=== PATIENT | male | born 1970 | race Two or more races ===

== ENCOUNTER 2017-12-10 19:38 | Inpatient (IN) | payer BC ==
[2017-12-10 20:37] LABS: % BASOPHILS 1.2 % (0.0-2.0); % EOSINOPHILS 3.4 % (0.0-5.0); % LYMPHOCYTES 17.4 % (20.0-50.0); % MONOCYTES 10.1 % (2.0-10.0); % NEUTROPHILS 67.9 % (40.0-80.0); BASOPHILE ABSOLUTE 0.1 Th/cumm (0-0.2); EOSINOPHILE ABSOLUTE 0.2 Th/cmm (0.1-0.4); HEMATOCRIT 24.9 % (41.0-60); HEMOGLOBIN 8.3 gm/dL (12-16); LYMPHOCYTE ABSOLUTE 1.1 Th/cmm (1.5-3.0); MEAN CELL VOLUME 90.8 fl (80-99); MEAN CORPUSCULAR HEMOGLOBIN 30.1 pg (26.0-30.0); MEAN CORPUSCULAR HGB CONC 33.1 pg (28.0-36.0); MEAN PLATELET VOLUME 7.1 fl; MONOCYTE ABSOLUTE 0.7 Th/cmm (0.3-1.0); NEUTROPHILE ABSOLUTE 4.5 Th/cmm (1.8-8.0); PLATELET COUNT 228 Th/cmm (150-400); RED BLOOD COUNT 2.75 Mil/cmm (4.30-5.70); RED CELL DISTRIBUTION WIDTH 12.9 % (11.5-20.0); WHITE BLOOD COUNT 6.6 Th/cmm (4.8-10.8)
--- NOTE | 2017-12-10 20:39 | ED Physician Chart ---
ED Chief Complaint/HPI - Patient Information Date Seen:: 12/10/17 Time Seen:: 20:05 Chief Complaint:: syncope History of Present Illness:: 47 yr old male on perioteneal dialysis for one yr with syncope yest found down on floor with hematoma rt forehead and headache Vitals:: Vital Signs - 8 hr 12/10/17 19:40 Temp 97.4 F HR 78 RR 18 BP 175/98 O2 Sat % 98 ED Review of Systems - Review of Systems General/Constitutional: No fever, No chills Skin: No skin lesions Head: No headache Eyes: No loss of vision ENT: No earache Neck: No neck pain Cardio Vascular: No chest pain Pulmonary: No SOB GI: No nausea, No vomiting G/U: No dysuria Musculoskeletal: No bone or joint pain Psychiatric: No depression Hematopoietic: No bruising Allergic/Immuno: No urticaria Neurological: Syncope, No focal symptoms, Headache, Confusion Family Medical History - Family Member Mother History Unknown: Yes Ethnicity: ED Septic Shock - . Is Septic Shock (SBP<90, OR Lactate>4 mmol\L) present?: No - <6hrs of presentation: Vital Signs: Vital Signs - 8 hr 12/10/17 19:40 Temp 97.4 F HR 78 RR 18 BP 175/98 O2 Sat % 98 ED Reassessment (Disposition) - Reassessment Reassessment Condition:: Unchanged - Diagnosis Diagnosis:: syncope - Patient Disposition Discharge/Transfer:: Acute Care w/in this hosp Admitted to:: Med/Surg Condition at Disposition:: Stable
[2017-12-10] MEDS ORDERED: Morphine Sulfate 2 mg/mL 1mL Syr IV STA (20:48)
[2017-12-10 20:51] LABS: ALB/GLOB RATIO 1.1 (1.0-1.8); ALBUMIN 3.4 gm/dL (4.2-5.5); ANION GAP 16.7 (7.0-16.0); BILIRUBIN,TOTAL 0.4 mg/dL (0.3-1.0); CALCIUM SERUM 7.2 mg/dL (8.6-10.3); CARBON DIOXIDE 23.1 mEq/L (21.0-31.0); GFR AFRICAN-AMERICAN 5.3 ml/min (>90); GFR NON AFRICAN-AMERICAN 4.4 ml/min; POTASSIUM SERUM 3.8 mEq/L (3.5-5.1); TOTAL PROTEIN,SERUM 6.6 gm/dL (6.0-8.3)
[2017-12-10] MEDS ORDERED: Morphine Sulfate 2 mg/mL 1mL Syr ONE (20:54)
[2017-12-10 20:55] LABS: CREATININE - SERUM 13.1 mg/dL (0.7-1.3)
[2017-12-11 00:48] VITALS: BP 160/99
[2017-12-11 06:55] LABS: % BASOPHILS 1.2 % (0.0-2.0); % EOSINOPHILS 2.8 % (0.0-5.0); % LYMPHOCYTES 15.1 % (20.0-50.0); % MONOCYTES 8.9 % (2.0-10.0); MEAN CELL VOLUME 90.2 fl (80-99); MEAN CORPUSCULAR HEMOGLOBIN 30.8 pg (26.0-30.0); MEAN CORPUSCULAR HGB CONC 34.2 pg (28.0-36.0); MEAN PLATELET VOLUME 7.2 fl; PLATELET COUNT 223 Th/cmm (150-400); RED CELL DISTRIBUTION WIDTH 12.4 % (11.5-20.0)
[2017-12-11 07:08] LABS: ANION GAP 16.5 (7.0-16.0); BILIRUBIN,TOTAL 0.4 mg/dL (0.3-1.0); CARBON DIOXIDE 22.5 mEq/L (21.0-31.0); GFR AFRICAN-AMERICAN 5.1 ml/min (>90); GFR NON AFRICAN-AMERICAN 4.2 ml/min; TOTAL PROTEIN,SERUM 5.9 gm/dL (6.0-8.3)
[2017-12-11 07:22] LABS: WHITE BLOOD COUNT 7.3 Th/cmm (4.8-10.8)
[2017-12-11 07:24] LABS: BASOPHILE ABSOLUTE 0.1 Th/cumm (0-0.2); EOSINOPHILE ABSOLUTE 0.2 Th/cmm (0.1-0.4); LYMPHOCYTE ABSOLUTE 1.1 Th/cmm (1.5-3.0); MONOCYTE ABSOLUTE 0.6 Th/cmm (0.3-1.0); NEUTROPHILE ABSOLUTE 5.3 Th/cmm (1.8-8.0)
[2017-12-11 07:36] LABS: HEMATOCRIT 23.4 % (41.0-60)
[2017-12-11 08:10] LABS: CREATININE - SERUM 13.4 mg/dL (0.7-1.3)
[2017-12-11] MEDS: Aspirin 81mg Chewable Tab PO SCH (09:18)
[2017-12-11] MEDS: Levothyroxine 0.05 Mg Tab PO SCH (09:18)
--- NOTE | 2017-12-11 09:18 | Diagnostic Imaging Report ---
CT scan of the brain without contrast History: Syncope Total DLP equals 816 CTDI equals 42.0 Axial sections were obtained from the base of the skull to the vertex. Marked soft tissue swelling noted over the right frontal region of the skull. Hyperdensity consistent with subcutaneous hematoma. There is a normal ventricular system size. No focal parenchymal lesions are seen. No evidence of any mass effect or shift of midline structures. No extra-axial masses or abnormal fluid collections. Atherosclerotic calcification seen in the region of the vertebral and basilar arteries at the base of the skull. Impression: 1. Marked soft tissue swelling over the right frontal region of the skull 2. No acute intracerebral abnormalities 3. Atherosclerotic vascular changes
[2017-12-11] MEDS: Atorvastatin Calcium 10 MG TAB PO SCH (09:19)
[2017-12-11] MEDS ORDERED: Acetaminophen 500 MG TAB PO PRN (11:51)
--- NOTE | 2017-12-11 13:32 | Consultation ---
DATE OF CONSULTATION: 12/11/2017 ATTENDING PHYSICIAN: Dr. Enrrique Gayle. REASON FOR CONSULTATION: End-stage renal disease. HISTORY OF PRESENT ILLNESS: The patient is a 47-year-old male with end-stage renal disease, on peritoneal dialysis, who was brought into the Emergency Room last night because of syncope and hematoma. He is admitted. I am called in consultation to manage his end-stage renal disease. PAST MEDICAL HISTORY: Significant for diabetes, hypertension, hyperlipidemia, end-stage renal disease on peritoneal dialysis for the past year. FAMILY HISTORY: Noncontributory. SOCIAL HISTORY: The patient denies drinking or smoking. ALLERGIES: No known drug allergies. MEDICATIONS: See medication reconciliation form. REVIEW OF SYSTEMS: As in history of present illness, all other systems reviewed and found to be negative. PHYSICAL EXAMINATION: VITAL SIGNS: His blood pressure is 161/83, temperature is 98.2, pulse is 71, respirations 18. CARDIOVASCULAR: S1, S2 heard. Regular rate and rhythm. LUNGS: Clear to auscultation bilaterally. ABDOMEN: Soft. No hepatosplenomegaly. There is a peritoneal dialysis catheter present. EXTREMITIES: There is no cyanosis, clubbing or edema. NEUROLOGIC: Cranial nerves 2-12 are intact. No focal deficit. LABORATORY DATA: WBC 7.3, hemoglobin 8.0, hematocrit 23.4, platelet count 223. Sodium is 138, potassium 4.0, chloride 103, bicarbonate 22.5, BUN 69, creatinine 13.4, glucose 137. Lactic acid 0.52, bilirubin 0.4, AST 15, ALT 41, alkaline phosphatase 56. Troponin 0.06. Total protein 5.9, albumin 3.0, globulin 2.9. ASSESSMENT AND PLAN: 1. End-stage renal disease, on peritoneal dialysis. We will continue his dialysis per regular schedule. 2. Syncope with head injury, rule out [place] with serial troponins and neuro consult. 3. Diabetes mellitus. Cover with sliding scale insulin. 4. Hypertension. Continue antihypertensive medications. Thank you very much for the privilege of consulting on your patient, Dr. Gayle. JOB# [id number]
--- NOTE | 2017-12-12 03:08 | History & Physical ---
ADMIT DATE: 12/11/2017 CHIEF COMPLAINT: Fall, head injury. HISTORY OF PRESENT ILLNESS: This is a 47-year-old male with ESRD, on daily peritoneal dialysis; also anemia of chronic disease; hypertension; lives at home, was brought into Emergency Room for evaluation of the fall and injury. The patient in the emergency room ____ treatment. The patient is Lao speaking. The patient's Croatian speaking family members who were at the bedside have made interpretation. The patient stated that at night he was going to the bathroom and was dark in the room and tripped and fell, injured his head, does not remember much after that. The patient said he went to work next in the morning, but he had a headache, so family member recommended the patient come to the Emergency Room. Per the Emergency Room, a CT of the head was negative for any ____ hemorrhage. The patient denies any associated chest pain, no shortness of breath, no dizziness, palpitations, no fever, no chills, no nausea, no vomiting, no abdominal pain. No headache, no seizure-like activity during the events. PAST MEDICAL HISTORY: Chronic kidney disease, on peritoneal dialysis; anemia; hypertension; hyperlipidemia; and hypothyroidism. PAST SURGICAL HISTORY: No reports of any past history. FAMILY AND SOCIAL HISTORY: Lives at home. He works as a mechanical shovel operator. No reported alcohol, tobacco, or street drug use. CURRENT MEDICATIONS: Tylenol, aspirin, Lipitor, calcitriol, PhosLo, Coreg, Colace, Imdur, Synthroid, Zestril, Hytrin, and tramadol. REVIEW OF SYSTEMS: Pain around the injury site. No abdominal pain, no chest pain, no palpitation or shortness of breath. No fevers, chills, nausea, no vomiting, no dysuria, hematuria, or any other complaints. PHYSICAL EXAMINATION: VITAL SIGNS: Temperature 98.4, pulse 69, respirations 19, and blood pressure 122/75. HEENT: Right forehead area bruise noted. NECK: Negative for JVD. Neck range of motion normal. CHEST: Clear to auscultation. HEART: S1 and S2 normal. No murmurs ____ or rubs. ABDOMEN: Soft, ____, bowel sounds normal. AVAILABLE LABORATORY DATA: Has been reviewed. ASSESSMENT: 1. Status post mechanical fall. 2. Head injury. 3. Anemia of chronic disease. 4. End-stage renal disease, on peritoneal dialysis. 5. Hypertension. 6. Hyperlipidemia. 7. Hypothyroidism. PLAN: The patient admitted to tele unit. CT head negative for any acute significant findings. Monitor vital signs. Monitor cardiac status. Continue home medications. Follow up labs in the morning, tramadol as needed for pain. Home medications reconciled and continued. Nephrology was consulted for dialysis management. The patient's family was updated on patient's condition and plan of care discussed with nursing staff. JOB# [id number]
[2017-12-12 05:38] LABS: % BASOPHILS 1.4 % (0.0-2.0); % EOSINOPHILS 3.1 % (0.0-5.0); % LYMPHOCYTES 11.5 % (20.0-50.0); % MONOCYTES 6.6 % (2.0-10.0); % NEUTROPHILS 77.4 % (40.0-80.0); BASOPHILE ABSOLUTE 0.1 Th/cumm (0-0.2); EOSINOPHILE ABSOLUTE 0.2 Th/cmm (0.1-0.4); HEMOGLOBIN 8.6 gm/dL (12-16); LYMPHOCYTE ABSOLUTE 0.7 Th/cmm (1.5-3.0); MEAN CELL VOLUME 91.1 fl (80-99); MEAN CORPUSCULAR HEMOGLOBIN 30.2 pg (26.0-30.0); MEAN CORPUSCULAR HGB CONC 33.1 pg (28.0-36.0); MEAN PLATELET VOLUME 6.7 fl; MONOCYTE ABSOLUTE 0.4 Th/cmm (0.3-1.0); NEUTROPHILE ABSOLUTE 5.1 Th/cmm (1.8-8.0); PLATELET COUNT 237 Th/cmm (150-400); RED BLOOD COUNT 2.85 Mil/cmm (4.30-5.70); RED CELL DISTRIBUTION WIDTH 12.3 % (11.5-20.0); WHITE BLOOD COUNT 6.5 Th/cmm (4.8-10.8)
[2017-12-12 05:49] LABS: ANION GAP 15.1 (7.0-16.0); CALCIUM SERUM 7.4 mg/dL (8.6-10.3); CARBON DIOXIDE 23.7 mEq/L (21.0-31.0); GFR AFRICAN-AMERICAN 5.3 ml/min (>90); GFR NON AFRICAN-AMERICAN 4.4 ml/min; POTASSIUM SERUM 3.8 mEq/L (3.5-5.1)
[2017-12-12 05:58] LABS: CREATININE - SERUM 13.1 mg/dL (0.7-1.3)
[2017-12-12] MEDS: Levothyroxine 0.05 Mg Tab PO SCH (08:21)
[2017-12-12] MEDS: Aspirin 81mg Chewable Tab PO SCH (08:21)
[2017-12-12] MEDS: Atorvastatin Calcium 10 MG TAB PO SCH (08:23)
--- NOTE | 2017-12-12 09:55 | General Progress Note ---
Subjective - Review of Systems Service Date: 12/12/17 Events since last encounter: Had PD Subjective: IM OK Objective - Results Result Diagrams: 12/12/17 05:25 12/12/17 05:25 Recent Labs: Laboratory Last Values WBC 6.5 Th/cmm (4.8-10.8) 12/12/17 05:25 RBC 2.85 Mil/cmm (4.30-5.70) L 12/12/17 05:25 Hgb 8.6 gm/dL (12-16) L 12/12/17 05:25 Hct 26.0 % (41.0-60) L 12/12/17 05:25 MCV 91.1 fl (80-99) 12/12/17 05:25 MCH 30.2 pg (26.0-30.0) H 12/12/17 05:25 MCHC Differential 33.1 pg (28.0-36.0) 12/12/17 05:25 RDW 12.3 % (11.5-20.0) 12/12/17 05:25 Plt Count 237 Th/cmm (150-400) 12/12/17 05:25 MPV 6.7 fl 12/12/17 05:25 Neutrophils % 77.4 % (40.0-80.0) 12/12/17 05:25 Lymphocytes % 11.5 % (20.0-50.0) L 12/12/17 05:25 Monocytes % 6.6 % (2.0-10.0) 12/12/17 05:25 Eosinophils % 3.1 % (0.0-5.0) 12/12/17 05:25 Basophils % 1.4 % (0.0-2.0) 12/12/17 05:25 Sodium 136 mEq/L (136-145) 12/12/17 05:25 Potassium 3.8 mEq/L (3.5-5.1) 12/12/17 05:25 Chloride 101 mEq/L (98-107) 12/12/17 05:25 Carbon Dioxide 23.7 mEq/L (21.0-31.0) 12/12/17 05:25 Anion Gap 15.1 (7.0-16.0) 12/12/17 05:25 BUN 69 mg/dL (7-25) H 12/12/17 05:25 Creatinine 13.1 mg/dL (0.7-1.3) H* 12/12/17 05:25 Est GFR ( Amer) 5.3 ml/min (>90) 12/12/17 05:25 Est GFR (Non-Af Amer) 4.4 ml/min 12/12/17 05:25 BUN/Creatinine Ratio 5.3 12/12/17 05:25 Glucose 193 mg/dL (70-105) H 12/12/17 05:25 Whole Bld Lactic Acid 0.52 mmol/L (0.60-1.99) L 12/10/17 20:25 Calcium 7.4 mg/dL (8.6-10.3) L 12/12/17 05:25 Total Bilirubin 0.4 mg/dL (0.3-1.0) 12/11/17 05:50 AST 15 U/L (13-39) 12/11/17 05:50 ALT 41 U/L (7-52) 12/11/17 05:50 Alkaline Phosphatase 56 U/L (34-104) 12/11/17 05:50 Troponin I 0.06 ng/mL (0.01-0.05) H 12/10/17 20:25 Total Protein 5.9 gm/dL (6.0-8.3) L 12/11/17 05:50 Albumin 3.0 gm/dL (4.2-5.5) L 12/11/17 05:50 Globulin 2.9 gm/dL 12/11/17 05:50 Albumin/Globulin Ratio 1.0 (1.0-1.8) 12/11/17 05:50 - Physical Exam Vitals and I&O: Vital Signs Temp 97.0 F 12/12/17 07:51 Pulse 68 12/12/17 08:22 Resp 18 12/12/17 07:51 BP 123/86 12/12/17 08:22 Pulse Ox 96 12/12/17 07:51 Intake & Output 12/11/17 12/12/17 12/12/17 18:59 06:59 18:59 Intake Total 500 0 Balance 500 0 Weight (lbs) 93.44 kg 93.44 kg Intake: Oral 500 0 Other: Weight Source Bedscale Bedscale Active Medications: Current Medications Acetaminophen (Tylenol Extra Strength) 1,000 mg PO Q6H PRN PRN Reason: Pain (Mild) Stop: 02/09/18 11:50 Last Admin: 12/11/17 12:44 Dose: 1,000 mg Aspirin (Aspirin Chewable) 81 mg PO DAILY [facility] Stop: 02/09/18 08:59 Last Admin: 12/12/17 08:21 Dose: 81 mg Atorvastatin Calcium (Lipitor) 20 mg PO DAILY [facility]; Protocol Stop: 02/09/18 08:59 Last Admin: 12/12/17 08:23 Dose: 20 mg Calcitriol (Rocaltrol) 0.25 mcg PO DAILY [facility] Stop: 02/09/18 08:59 Last Admin: 12/12/17 08:23 Dose: 0.25 mcg Calcium Acetate (Phoslo) 667 mg PO TIDWM [facility] Stop: 02/09/18 08:59 Last Admin: 12/12/17 08:21 Dose: 667 mg Carvedilol (Coreg) 3.125 mg PO BID [facility] Stop: 02/09/18 08:59 Last Admin: 12/12/17 08:22 Dose: 3.125 mg Docusate Sodium (Colace) 500 mg PO BID [facility] Stop: 02/09/18 08:59 Last Admin: 12/12/17 08:23 Dose: 500 mg Furosemide (Lasix) 80 mg PO BID [facility] Stop: 02/09/18 08:59 Last Admin: 12/12/17 08:22 Dose: 80 mg Isosorbide Mononitrate (Imdur) 30 mg PO DAILY [facility] Stop: 02/09/18 08:59 Last Admin: 12/12/17 08:21 Dose: 30 mg Levothyroxine Sodium (Synthroid) 0.05 mg PO DAILY [facility] Stop: 02/09/18 08:59 Last Admin: 12/12/17 08:21 Dose: 0.05 mg Lisinopril (Zestril) 10 mg PO DAILY [facility] Stop: 02/09/18 08:59 Last Admin: 12/12/17 08:22 Dose: 10 mg Terazosin HCl (Hytrin) 5 mg PO HS [facility] Stop: 02/09/18 20:59 Last Admin: 12/11/17 20:41 Dose: 5 mg Tramadol HCl (Ultram) 50 mg PO Q6HR PRN PRN Reason: Pain (Moderate) Stop: 02/09/18 13:11 General: Alert, Oriented x3, Cooperative, No acute distress Neck: Supple Cardiovascular: Regular rate, Normal S1, Normal S2 Abdomen: Soft Extremities: Pulses, Other, no Clubbing, no Cyanosis, no Edema, no Tender Assessment/Plan - Problem List Patient Problems: All Active Problems ESRD (end stage renal disease) (Acute) HTN (hypertension) (Acute) I10 - Assessment Assessment: ESRD ON PD CYCLER DOING WELL HTN CONTROLLED - Plan Plan: CONT CURRENT RX
--- NOTE | 2017-12-12 15:24 | General Progress Note ---
Subjective - Review of Systems Service Date: 12/12/17 Subjective: Patient seen and examined doing fine patient's son and daughter in law was at the bedside who lives with the patient. According to them they noticed patient on the ground with forehead injury . Don't know if patient had LOC . Patient also don't remember the episode Objective - Results Result Diagrams: 12/12/17 05:25 12/12/17 05:25 Recent Labs: Laboratory Last Values WBC 6.5 Th/cmm (4.8-10.8) 12/12/17 05:25 RBC 2.85 Mil/cmm (4.30-5.70) L 12/12/17 05:25 Hgb 8.6 gm/dL (12-16) L 12/12/17 05:25 Hct 26.0 % (41.0-60) L 12/12/17 05:25 MCV 91.1 fl (80-99) 12/12/17 05:25 MCH 30.2 pg (26.0-30.0) H 12/12/17 05:25 MCHC Differential 33.1 pg (28.0-36.0) 12/12/17 05:25 RDW 12.3 % (11.5-20.0) 12/12/17 05:25 Plt Count 237 Th/cmm (150-400) 12/12/17 05:25 MPV 6.7 fl 12/12/17 05:25 Neutrophils % 77.4 % (40.0-80.0) 12/12/17 05:25 Lymphocytes % 11.5 % (20.0-50.0) L 12/12/17 05:25 Monocytes % 6.6 % (2.0-10.0) 12/12/17 05:25 Eosinophils % 3.1 % (0.0-5.0) 12/12/17 05:25 Basophils % 1.4 % (0.0-2.0) 12/12/17 05:25 Sodium 136 mEq/L (136-145) 12/12/17 05:25 Potassium 3.8 mEq/L (3.5-5.1) 12/12/17 05:25 Chloride 101 mEq/L (98-107) 12/12/17 05:25 Carbon Dioxide 23.7 mEq/L (21.0-31.0) 12/12/17 05:25 Anion Gap 15.1 (7.0-16.0) 12/12/17 05:25 BUN 69 mg/dL (7-25) H 12/12/17 05:25 Creatinine 13.1 mg/dL (0.7-1.3) H* 12/12/17 05:25 Est GFR ( Amer) 5.3 ml/min (>90) 12/12/17 05:25 Est GFR (Non-Af Amer) 4.4 ml/min 12/12/17 05:25 BUN/Creatinine Ratio 5.3 12/12/17 05:25 Glucose 193 mg/dL (70-105) H 12/12/17 05:25 Whole Bld Lactic Acid 0.52 mmol/L (0.60-1.99) L 12/10/17 20:25 Calcium 7.4 mg/dL (8.6-10.3) L 12/12/17 05:25 Total Bilirubin 0.4 mg/dL (0.3-1.0) 12/11/17 05:50 AST 15 U/L (13-39) 12/11/17 05:50 ALT 41 U/L (7-52) 12/11/17 05:50 Alkaline Phosphatase 56 U/L (34-104) 12/11/17 05:50 Troponin I 0.04 ng/mL (0.01-0.05) 12/12/17 13:40 Total Protein 5.9 gm/dL (6.0-8.3) L 12/11/17 05:50 Albumin 3.0 gm/dL (4.2-5.5) L 12/11/17 05:50 Globulin 2.9 gm/dL 12/11/17 05:50 Albumin/Globulin Ratio 1.0 (1.0-1.8) 12/11/17 05:50 - Physical Exam Vitals and I&O: Vital Signs Temp 98.0 F 12/12/17 11:35 Pulse 66 12/12/17 11:35 Resp 18 12/12/17 15:00 BP 124/73 12/12/17 11:35 Pulse Ox 98 12/12/17 11:35 Intake & Output 12/11/17 12/12/17 12/12/17 18:59 06:59 18:59 Intake Total 500 0 Balance 500 0 Weight (lbs) 93.44 kg 93.44 kg Intake: Oral 500 0 Other: Weight Source Bedscale Bedscale Active Medications: Current Medications Acetaminophen (Tylenol Extra Strength) 1,000 mg PO Q6H PRN PRN Reason: Pain (Mild) Stop: 02/09/18 11:50 Last Admin: 12/11/17 12:44 Dose: 1,000 mg Aspirin (Aspirin Chewable) 81 mg PO DAILY [facility] Stop: 02/09/18 08:59 Last Admin: 12/12/17 08:21 Dose: 81 mg Atorvastatin Calcium (Lipitor) 20 mg PO DAILY [facility]; Protocol Stop: 02/09/18 08:59 Last Admin: 12/12/17 08:23 Dose: 20 mg Calcitriol (Rocaltrol) 0.25 mcg PO DAILY [facility] Stop: 02/09/18 08:59 Last Admin: 12/12/17 08:23 Dose: 0.25 mcg Calcium Acetate (Phoslo) 667 mg PO TIDWM [facility] Stop: 02/09/18 08:59 Last Admin: 12/12/17 11:52 Dose: 667 mg Carvedilol (Coreg) 3.125 mg PO BID [facility] Stop: 02/09/18 08:59 Last Admin: 12/12/17 08:22 Dose: 3.125 mg Docusate Sodium (Colace) 500 mg PO BID [facility] Stop: 02/09/18 08:59 Last Admin: 12/12/17 08:23 Dose: 500 mg Furosemide (Lasix) 80 mg PO BID [facility] Stop: 02/09/18 08:59 Last Admin: 12/12/17 08:22 Dose: 80 mg Isosorbide Mononitrate (Imdur) 30 mg PO DAILY [facility] Stop: 02/09/18 08:59 Last Admin: 12/12/17 08:21 Dose: 30 mg Levothyroxine Sodium (Synthroid) 0.05 mg PO DAILY [facility] Stop: 02/09/18 08:59 Last Admin: 12/12/17 08:21 Dose: 0.05 mg Lisinopril (Zestril) 10 mg PO DAILY [facility] Stop: 02/09/18 08:59 Last Admin: 12/12/17 08:22 Dose: 10 mg Terazosin HCl (Hytrin) 5 mg PO HS [facility] Stop: 02/09/18 20:59 Last Admin: 12/11/17 20:41 Dose: 5 mg Tramadol HCl (Ultram) 50 mg PO Q6HR PRN PRN Reason: Pain (Moderate) Stop: 02/09/18 13:11 General: Alert, Oriented x3, Cooperative, No acute distress Neck: Supple Cardiovascular: Regular rate Lungs: Clear to auscultation Abdomen: Soft Extremities: Clubbing, no Edema Assessment/Plan - Problem List Patient Problems: All Active Problems ESRD (end stage renal disease) (Acute) HTN (hypertension) (Acute) I10 - Assessment Assessment: Fall ? syncope ESRD on peritoneal dialysis HTN CAD - Plan Plan: Per family patient has appointment to see cardiology tomorrow for his underlying CAD will get Neurology consult to r/o in neuro cause of patient's fall Also cardiology consult. So far cardiac work up negative. patient had ECHO done last week at [facility] Case discussed with Cardiology Family was updated on plan of care TACO helms
[2017-12-13] MEDS: Atorvastatin Calcium 10 MG TAB PO SCH (08:53)
[2017-12-13] MEDS: Aspirin 81mg Chewable Tab PO SCH (08:54)
[2017-12-13] MEDS: Levothyroxine 0.05 Mg Tab PO SCH (08:55)
--- NOTE | 2017-12-13 09:25 | Diagnostic Imaging Report ---
Carotid ultrasound HISTORY: Syncope COMPARISON: None Technique: Longitudinal and transverse sonographic sector images of the carotid arteries were obtained with doppler analysis. FINDINGS: Exam is limited due to patient medical condition. Mild generalized atherosclerosis is noted. There nonvisualization of the bilateral external carotid arteries, right mid and right distal internal carotid artery and left vertebral artery. No significant elevated velocities. IMPRESSION: Severely limited and incomplete examination due to patient's medical condition and technical factors. Mild atherosclerotic vascular disease is noted. As not all areas of the carotid arteries were not able to be successfully imaged., If clinically indicated CT angiography or MR angiography of the neck may be obtained for further assessment of the vasculature.
--- NOTE | 2017-12-13 10:39 | Consultation ---
DATE OF CONSULTATION: 12/12/[address] Irwin Osuna. HISTORY AND PHYSICAL: This 47-year-old male patient with end-stage renal disease, on peritoneal dialysis. The patient at night in the dark was trying to go to the bathroom. At this time, the patient tripped, had a fall and injury to the right forehead. Following this, the patient came to the Emergency Room, noticed pain due to headache. The patient had a CT scan, which showed no evidence of coronary artery disease. According to the family, the patient does have coronary artery disease. The patient did not have any chest pain or palpitation at that time. PAST MEDICAL HISTORY: Hypertension, hypothyroid, hyperlipidemia, iron deficiency anemia, CKD stage V, on peritoneal dialysis. FAMILY HISTORY: Unremarkable. SOCIAL HISTORY: No history of smoking or alcohol abuse. ALLERGIES: No known allergies. PHYSICAL EXAMINATION: VITAL SIGNS: Blood pressure 140/80, pulse 70 and respirations 20. HEENT: Head normocephalic. No lumps or bumps. EYES: Pupils equal. The patient has a soft tissue injury on the right forehead. EYES: Pupils equal and reactive to light. Fundi showing AV nicking, sclerae white, conjunctivae pink. NECK: Carotid 2+. Normal upstroke. JVD flat. Thyroid not palpable. Lymph nodes not palpable. CHEST: Shows increased AP diameter. No kyphosis or scoliosis. LUNGS: Bilateral bronchovesicular breath sounds. HEART: PMI fifth intercostal space with lateral to midclavicular line. S1 and S2. No S3 or S4. Soft systolic murmur. ABDOMEN: Soft. Liver and spleen not palpable. No organomegaly. Bowel sounds active. NEUROLOGIC: No focal neurological deficit. EXTREMITIES: Peripheral pulses 2+. No pedal edema. CLINICAL IMPRESSION: Status post mechanical fall with head injury; soft tissue swelling in the right forehead; chronic kidney disease, stage V; end-stage renal disease, on peritoneal dialysis; iron deficiency anemia; hypertension; hyperlipidemia and hypothyroidism. PLAN: The patient had a CT scan, which was negative. We will get troponin level, EKG and echocardiogram. The patient's cardiac status is stable at this time. EKG unremarkable. [facility]# [id number]
--- NOTE | 2017-12-14 04:28 | Consultation ---
DATE OF CONSULTATION: 12/13/2017 NEUROLOGY CONSULTATION HISTORY OF PRESENT ILLNESS: A 47-year-old male had an episode where he was at home, he fell, seems it was like an accidental fall, but he does not remember exactly the details of what happened. He was kind of going to the bathroom and it was kind of dark, and he tripped. The patient has swelling over the forehead and he went to work the next day. Complains of headache, but is better now. No dizziness. No diplopia. PAST MEDICAL HISTORY: Hypertension, hyperlipidemia, hypothyroidism. The patient has chronic kidney disease, peritoneal dialysis, anemia. SURGERIES: None. SOCIAL HISTORY: Does not smoke or drink. MEDICATIONS: Per reconciliation. REVIEW OF SYSTEMS: Twelve point negative, except for above swelling on the forehead. PHYSICAL EXAMINATION: VITAL SIGNS: Temperature 98.2, blood pressure 128/76, pulse is 72. HEAD: Swelling on the forehead. NECK: Supple. No bruits. HEART: Normal heart sounds. LUNGS: Clear. ABDOMEN: Soft. NEUROLOGIC: Awake, alert. Answers questions. Speech is normal. He knew what day, what month, what year. Cranial: Pupils react to light. Full eye movement, no nystagmus. No facial weakness. motor: He will lift both arms up. Reflexes about 1. The patient is able to walk here, not unsteady. INVESTIGATIONS: CT scan of head shows hematoma on the scalp, but no intracranial injury. ASSESSMENT: 1. Fall. 2. Head injury with subcutaneous hematoma. 3. Hypertension. 4. Hyperlipidemia. 5. Hypothyroidism. 6. End-stage renal disease, peritoneal dialysis. MANAGEMENT: The patient will have carotid Doppler study. JOB# [id number]
== END 2017-12-13 09:50 | disposition home or self-care (01) | DRG 604 ==
LOC: ER 19:38 → TELE 23:06
PROVIDERS: ADMIT Family Medicine; ATTEND Family Medicine
DX: S00.03XA Contusion of scalp, initial encounter (principal); N18.6 End stage renal disease; I12.0 Hypertensive chronic kidney disease with stage 5 chronic kidney disease or end stage renal disease; S00.83XA Contusion of other part of head, initial encounter; R55 Syncope and collapse; Z99.2 Dependence on renal dialysis; E78.5 Hyperlipidemia, unspecified; E03.9 Hypothyroidism, unspecified; E11.22 Type 2 diabetes mellitus with diabetic chronic kidney disease; D63.8 Anemia in other chronic diseases classified elsewhere; I25.10 Atherosclerotic heart disease of native coronary artery without angina pectoris; D50.9 Iron deficiency anemia, unspecified; W01.0XXA Fall on same level from slipping, tripping and stumbling without subsequent striking against object, initial encounter; Y93.89 Activity, other specified; Y92.041 Bathroom in boarding-house as the place of occurrence of the external cause; Y99.8 Other external cause status
CPT/HCPCS: 36415-UA; 70450-TC; 80048-TC; 80053-TC; 83036-90; 83605; 84484-TC; 85025-TC; 93005; 93880-TC; 96374; 96379; 97530; J2270; J7030; X3904; Z7610